=== PATIENT | male | born 1975 | race Caucasian/White ===

== ENCOUNTER 2017-01-22 23:35 | Emergency (ER) | payer OTHER ==
[~2017-01-22] VITALS: Ht 175.3 cm; Wt 80.7 kg
[2017-01-22 23:40] VITALS: BP 147/88
[2017-01-22] MEDS ORDERED: LIDOCAINE HCL/PF 2 % 5ML SDV 5 ML VIAL ONE (23:52)
[2017-01-22] MEDS ORDERED: PIPERACILLIN /TAZOBACTAM 3.375 G VIAL IV ONE (23:56)
[2017-01-23] MEDS ORDERED: BACI/NEOM/POLY B OINT PKT 1 UDPKT PACKET TP ONE
[2017-01-23] MEDS ORDERED: SODIUM BICARBONATE 5 ML VIAL TP ONE
[2017-01-23] MEDS ORDERED: LIDOCAINE 2% 20 ML MDV TP ONE
[2017-01-23] MEDS ORDERED: PIPERACILLIN /TAZOBACTAM 3.375 G in IV D5W 50 ML IV ONE ×2
== END 2017-01-23 01:52 | disposition home or self-care (01) ==
LOC: ER 23:39
DX: S61.451A Open bite of right hand, initial encounter (principal); W54.0XXA Bitten by dog, initial encounter; Y93.89 Activity, other specified; Y92.89 Other specified places as the place of occurrence of the external cause; Y99.9 Unspecified external cause status
CPT/HCPCS: 73130-TC; A4606; A6402; J2543; J3490; J7060; Z7610